=== PATIENT | male | born 2000 | race Caucasian/White ===

== ENCOUNTER 2025-01-01 07:20 | Emergency (ER) | payer MEDICAID ==
[~2025-01-01] VITALS: Ht 175.3 cm; Wt 77.0 kg
[2025-01-01] MEDS: MORPHINE SULFATE 4 MG/ML SYR/VIAL IV ONE (08:05)
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
[2025-01-01 09:34] VITALS: BP 99/54; PULSE 65; RESP 16; TEMP 97.9; O2SAT 98
[2025-01-01] MEDS ORDERED: LIDO5DIS21 TOP (09:43)
[2025-01-01] MEDS ORDERED: METH-1181 PO (09:43)
[2025-01-01] MEDS ORDERED: NAPR-746 PO (09:43)
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
== END 2025-01-01 10:00 | disposition home or self-care (01) ==
LOC: EDBD 07:20 → ER 07:20
DX: M54.9 Dorsalgia, unspecified (principal); M79.671 Pain in right foot; M54.2 Cervicalgia; V43.52XA Car driver injured in collision with other type car in traffic accident, initial encounter; Y93.89 Activity, other specified; Y92.410 Unspecified street and highway as the place of occurrence of the external cause; Y99.8 Other external cause status
CPT/HCPCS: 70450; 72125; 72128; 72131; 73630; 96374; 99285; J2270